=== PATIENT | female | born 1960 ===

== ENCOUNTER 2019-12-23 09:08 | Outpatient (CLI) | payer OTHER, SELFPAY | END 2019-12-23 23:59 | disposition home or self-care (01) | LOC: MLB 09:08 → EDSTATUS 01-02 10:00 | PROVIDERS: ATTEND Internal Medicine Gastroenterology | DX: Z01.818 Encounter for other preprocedural examination (principal); Z11.59 Encounter for screening for other viral diseases; Z12.11 Encounter for screening for malignant neoplasm of colon | CPT/HCPCS: U0003-CS ==